=== PATIENT | male | born 2005 | race Caucasian/White ===

== ENCOUNTER 2025-02-11 12:45 | Emergency (ER) | payer SELFPAY ==
[2025-02-11] MEDS ORDERED: Acetaminophen 500 MG TAB ONE (17:44)
[2025-02-11 17:55] LABS: #Basophils 0.05 10x3/uL (0.0-0.2); #Eosinophils 0.33 10x3/uL (0.0-0.7); #Monocytes 0.57 10x3/uL (0.11-0.59); #Neutrophils 4.11 10x3/uL (1.40-6.50); %Basophils 0.7 % (0.0-1.0); %Eosinophils 4.4 % (0.0-10.0); %Lymphocytes 32.8 % (28.0-48.0); %Monocytes 7.5 % (0.0-4.0); %Neutrophils 54.5 % (31.0-61.0); Hematocrit 45.6 % (42.0-52.0); Hemoglobin 15.4 g/dL (14.0-18.0); Mean Corpuscular Hemoglobin 29.8 pg (25.0-35.0); Mean Corpuscular Volume 88.2 fL (78.0-98.0); Platelet Count 272 10x3/uL (130-400); Red Blood Cell (RBC) Count 5.17 mill/uL (4.00-5.20); White Blood Cell (WBC) Count 7.55 10x3/uL (4.8-10.8)
[2025-02-11 18:11] LABS: ALT (SGPT) 39 U/L (Less than 45); AST (SGOT) 43 U/L (11-34); Acetaminophen Less than 10 mcg/mL (Less than 10); Albumin 5.0 g/dL (3.1-4.5); Alkaline Phosphatase 80 U/L (50-130); Anion Gap 13 mmol/L (10-20); BUN (Urea Nitrogen) 11 mg/dL (8.4-21.0); Bilirubin, Total 0.7 mg/dL (0.3-1.2); Calc. Creatinine Clearance 0 mL/min (70-130); Calcium 10.0 mg/dL (7.8-10.44); Carbon Dioxide 26 mmol/L (22-29); Chloride 106 mmol/L (98-107); Globulin 3.6 g/dL (2.4-3.5); Glucose 77 mg/dL (70-105); Potassium 3.7 mmol/L (3.5-5.1); Salicylate Less than 8.0 mg/dL (Less than 8.0); Sodium 141 mmol/L (136-145)
== END 2025-02-11 19:26 | disposition home or self-care (01) ==
LOC: ERS 12:45
DX: E86.0 Dehydration (principal); R29.700 NIHSS score 0
CPT/HCPCS: 36415; 70450; 71045; 80053; 80307; 82550; 84443; 84484; 85025; 93005